=== PATIENT | male | born 1950 | race Caucasian/White ===

== ENCOUNTER 2019-12-15 21:24 | Emergency (ER) | payer MEDICARE, BC ==
--- NOTE | 2019-12-15 22:27 | EDM.PDOC ---
ED HPI GENERAL MEDICAL PROBLEM - General Chief Complaint: General Stated Complaint: Seizure, Brain CA Time Seen by Provider: 12/15/19 21:55 Source of Information: Reports: Patient, EMS, Family History Limitations: Reports: No Limitations - History of Present Illness INITIAL COMMENTS - FREE TEXT/NARRATIVE: Per the patient was at home at night. To go to bed when he is is deviated back to the left he got stiff and had a syncopal episode lasting about a minute and a half to maybe 2 minutes. He was also incontinent of urine. she called EMS and was transported to the hospital since arrival patient has been alert and oriented x4 and following all commands cranial nerves II through XII are intact. Patient states today that he had a CT of his right shoulder and C-spine secondary to increased right shoulder pain in [place] at [place]. PT states he has been having a headache off and on for the last 4 to 5 days and points across the frontal forehead but states it is about a 6 out of 10 is been intermittent lasting anywhere from hours to minutes seems to get worse with lying down but patient states since he had the episode at home the headache is gone now. He denies any other problems or symptoms states he is feeling fine now Patient is currently undergoing chemotherapy secondary to brain cancer liver and spine cancer he has had past radiation treatments x2. Upon the last PET scan states that the radiation had shrink the tumors. He also had approximately 2 months ago injection into a lymph node along with his brain with chemotherapy states he had no problems from that. ] He currently sees Dr. Jakub Massey and Dr. Dos Santos at [place] He says today he ate and drink normally and felt okay just a headache Onset: Today, Sudden Duration: Minutes: Location: Reports: Head Quality: Reports: Pressure Severity: Mild Improves with: Reports: Other (Sitting up) Worsens with: Reports: Other (Lying down) Associated Symptoms: Reports: Headaches, Syncope. Denies: Confusion, Chest Pain , Cough, cough w sputum, Diaphoresis, Fever/Chills, Loss of Appetite, Malaise, Nausea/Vomiting, Rash, Seizure, Shortness of Breath, Weakness - Related Data Allergies Allergy/AdvReac Type Severity Reaction Status Date / Time No Known Allergies Allergy Verified 12/15/19 22:14 Home Meds: Home Meds amLODIPine [Norvasc] 5 mg PO DAILY 10/12/14 [History] predniSONE [Prednisone] 5 mg PO DAILY 12/15/19 [History] ED ROS GENERAL - Review of Systems Review Of Systems: See Below Constitutional: Reports: No Symptoms. Denies: Fever, Chills, Malaise, Weakness , Fatigue, Night Sweats, Diaphoresis, Decreased Appetite, Weight Loss HEENT: Reports: No Symptoms. Denies: Nose Pain, Rhinitis, Sinus Problem, Throat Pain, Vertigo, Vision Change Respiratory: Reports: No Symptoms Cardiovascular: Reports: No Symptoms Endocrine: Reports: No Symptoms. Denies: Fatigue GI/Abdominal: Reports: No Symptoms : Reports: Incontinence. Denies: No Symptoms Musculoskeletal: Reports: No Symptoms Skin: Reports: No Symptoms Neurological: Reports: Headache, Syncope. Denies: Confusion, Dizziness, Numbness, Paresthesia, Pre-Existing Deficit, Tingling, Tremors, Trouble Speaking , Difficulty Walking, Weakness, Change in Speech, Gait Disturbance Psychiatric: Reports: No Symptoms Hematologic/Lymphatic: Reports: No Symptoms Immunologic: Reports: No Symptoms ED EXAM, GENERAL - Physical Exam Exam: See Below Exam Limited By: No Limitations General Appearance: Alert, WD/WN, No Apparent Distress Eye Exam: Bilateral Eye: EOMI, PERRL Ears: Normal External Exam, Normal Canal, Hearing Grossly Normal, Normal TMs Nose: Normal Inspection, Normal Mucosa, No Blood Throat/Mouth: Normal Inspection, Normal Lips, Normal Teeth, Normal Gums, Normal Oropharynx, Normal Voice, No Airway Compromise Head: Atraumatic, Normocephalic Neck: Normal Inspection, Supple, Non-Tender, Full Range of Motion Respiratory/Chest: No Respiratory Distress, Lungs Clear, Normal Breath Sounds, No Accessory Muscle Use, Chest Non-Tender Cardiovascular: Normal Peripheral Pulses, Regular Rate, Rhythm, No Edema, No Gallop, No JVD, No Murmur, No Rub GI/Abdominal: Normal Bowel Sounds, Soft, Non-Tender, No Organomegaly, No Distention Back Exam: Normal Inspection, Full Range of Motion Extremities: Normal Inspection, Normal Range of Motion, Non-Tender, No Pedal Edema, Normal Capillary Refill Neurological: Alert, Oriented, CN II-XII Intact, Normal Cognition, Normal Reflexes, No Motor/Sensory Deficits, Other (Cranial nerves II through XII are intact 5 of 5 upper extremity lower extremity equal photographer portrait no pronator sway equal facial sensation ) Psychiatric: Normal Affect, Normal Mood Skin Exam: Warm, Dry, Intact, Normal Color, No Rash Lymphatic: No Adenopathy Course - Vital Signs Text/Narrative:: CBC BMP EKG CT head chest x-ray sodium of [address] reveals #10 hyperdense masses largest measuring 3.0 x 2.2 cm in the anterior right frontal lobe vasogenic edema Spoke with Dr. Mary Ballesterosford hospitalist he will accept transfer patient had 2350 Last Recorded V/S: Last Vital Signs Temp 36.6 C 12/15/19 21:25 Pulse 92 12/15/19 21:25 Resp 16 12/15/19 22:33 BP 135/86 12/15/19 22:33 Pulse Ox 94 L 12/15/19 22:33 - Orders/Labs/Meds Orders: Active Orders 24 hr Category Date Time Status EKG 12 Lead [EKG Documentation Completion] [RC] STAT Care 12/15/19 21:35 Active Chest 1V Frontal [CR] Stat Exams 12/15/19 22:20 Taken Head wo Cont [CT] Stat Exams 12/15/19 22:20 Taken Labs: Laboratory Tests 12/15/19 12/15/19 Range/Units 22:30 22:30 WBC 5.5 (4.0-10.0) x10^3/uL RBC 3.96 L (4.5-6.0) x10^6/uL Hgb 12.8 L (14.0-18.0) g/dL Hct 35.9 L (40.0-52.0) % MCV 90.7 (78.0-93.0) fL MCH 32.3 H (26.0-32.0) pg MCHC 35.7 (32.0-36.0) g/dL RDW Coeff of Jose 13.3 (10.0-15.0) % Plt Count 171 (130-400) x10^3/uL Neut % (Auto) 82.9 H (50.0-80.0) % Lymph % (Auto) 7.6 L (25.0-50.0) % [place] % (Auto) 9.3 (2.0-11.0) % Eos % (Auto) 0.0 (0.0-4.0) % Baso % (Auto) 0.2 (0.2-1.2) % Sodium 129 L* (136-145) mmol/L Potassium 3.5 (3.5-5.1) mmol/L Chloride 92 L (98-107) mmol/L Carbon Dioxide 25 (21-32) mmol/L Anion Gap 15.5 (10-20) mmol/L BUN 28 H (7-18) mg/dL Creatinine 1.3 (0.70-1.30) mg/dL Est Cr Clr Drug Dosing 53.63 mL/min Estimated GFR (MDRD) 55 Glucose 181 H (74-106) mg/dL Calcium 8.8 (8.5-10.1) mg/dL Departure - Departure Time of Disposition: 23:45 Disposition: DC/Tfer to Acute Hospital 02 Condition: Good Clinical Impression: Hyponatremia, New onset seizure, Brain metastases - Discharge Information Referrals: Jakub Parry MD [Primary Care Provider] - Forms: ED Department Discharge Sepsis Event Note - Evaluation Sepsis Screening Result: No Definite Risk - Focused Exam Vital Signs: Vital Signs Temp Pulse Resp BP Pulse Ox 12/15/19 22:33 16 135/86 94 L 12/15/19 21:25 36.6 C 92 16 134/92 H 92 L Date Exam was Performed: 12/15/19 Time Exam was Performed: 23:47 - Problem List & Annotations (1) Brain metastases Status: Acute Current Visit: Yes (2) Hyponatremia SNOMED Code(s): 56249885 Code(s): E87.1 - HYPO-OSMOLALITY AND HYPONATREMIA Status: Acute Current Visit: Yes (3) New onset seizure SNOMED Code(s): 59750088 Code(s): R56.9 - UNSPECIFIED CONVULSIONS Status: Acute Current Visit: Yes - My Orders Last 24 Hours: My Active Orders 12/15/19 21:35 EKG 12 Lead [EKG Documentation Completion] [RC] STAT 12/15/19 22:20 Chest 1V Frontal [CR] Stat Head wo Cont [CT] Stat - Assessment/Plan Last 24 Hours: My Active Orders 12/15/19 21:35 EKG 12 Lead [EKG Documentation Completion] [RC] STAT 12/15/19 22:20 Chest 1V Frontal [CR] Stat Head wo Cont [CT] Stat
[2019-12-15 22:51] LABS: ANION GAP 15.5 mmol/L (10-20)
[2019-12-16] MEDS: Sodium Chloride 0.9% 1,000 ML IV ONE (00:11)
[2019-12-16] MEDS: Ondansetron 4 MG/2 ML SDV IVPUSH ONE (00:12)
[2019-12-16] MEDS: HYDROmorphone 1 MG/ML Syringe IVPUSH PRN (00:15)
--- NOTE | 2019-12-16 08:00 | CR ---
[id number] RAD/RAD Chest PA or AP 1V EXAM: RAD Chest PA or AP 1V INDICATION: NEW ONSET SEIZURE WITH HISTORY OF BRAIN CANCER COMPARISON: None. DISCUSSION: Cardiomediastinal silhouette is normal in size and contour. No infiltrate, effusion, pneumothorax, or edema. Surgical clips project over the right upper quadrant. IMPRESSION: Negative examination of the chest. Hunter Barnes MD 12/16/19 0758 Thank you for allowing us to participate in the care of your patient.
--- NOTE | 2019-12-16 08:04 | CT ---
[id number] CT/CT Head WO IV EXAM: CT Head WO IV CLINICAL DATA: NEW ONSET SEIZURE WITH HISTORY OF BRAIN CANCER COMPARISON STUDY: None FINDINGS: Numerous hyperdense masses scattered throughout both cerebral hemispheres. Most of these appear located within the brain parenchyma resulting in vasogenic edema. Largest on the right are located in the anterior right frontal lobe measuring 21 x 25 x 23 mm and 24 x 20 x 24 mm. Largest on the left is located in the occipital lobe measuring approximately 15 x 23 x 20 mm. There are at least 10 lesions on the left and 6 lesions on the right. No evidence of significant midline shift. No evidence of transtentorial herniation or hydrocephalus. There are also possible tiny lesions in the posterior fossa. Calvarium appears intact without radiographic evidence of osseous metastatic disease. However, there is a soft tissue defect along the posterior parietal region that may expose the calvarium. This is nonspecific. No prior imaging is available for comparison or correlation. IMPRESSION: Multiple hyperdense masses scattered throughout posterior hemispheres and posterior fossa, some of which demonstrate adjacent vasogenic edema. Appearance is consistent with neoplastic disease, likely metastases given the number and distribution of lesions. Hunter Barnes MD 12/16/19 0802 Thank you for allowing us to participate in the care of your patient.
== END 2019-12-16 00:45 | disposition short-term general hospital (02) ==
LOC: VM.ED 21:24
DX: C80.1 Malignant (primary) neoplasm, unspecified (principal); C79.31 Secondary malignant neoplasm of brain; E87.1 Hypo-osmolality and hyponatremia; R56.9 Unspecified convulsions
CPT/HCPCS: 36415; 70450; 71045; 80048; 85025; 93005; 96374; 96375; 99284-GF; 99285-25; J1170; J2405; J7030